=== PATIENT | female | born 2000 | race Caucasian/White ===

== ENCOUNTER 2020-02-20 21:27 | Emergency (ER) | payer OTHER ==
[2020-02-20 21:41] VITALS: BP 110/66; PULSE 84; TEMP 98.4; BMI 19.2
[2020-02-20 23:34] LABS: BASO % 0.4 % (0-2.0); EOS % 2.7 % (0-4.5); HEMATOCRIT 37.1 % (32.4-45.2); HEMOGLOBIN 12.8 GM/dL (10.7-15.3); MCH 30.5 pg (25.7-33.7); MCHC 34.4 g/dl (32.0-36.0); MEAN CELL VOLUME 88.8 fl (80-96); MEAN PLT VOLUME 8.3 fl (7.5-11.1); MONO % 7.3 % (3.8-10.2); NEUT % 46.6 % (42.8-82.8); PLATELET COUNT 251 K/MM3 (134-434); RBC 4.18 M/mm3 (3.60-5.2); RDW 12.6 % (11.6-15.6); WHITE BLOOD COUNT 7.2 K/mm3 (4.0-10.0)
[2020-02-21 00:01] LABS: ALBUMIN 4.5 g/dl (3.4-5.0); ALK PHOS 73 U/L (45-117); ANION GAP 9 MMOL/L (8-16); BILIRUBIN,TOTAL 0.4 mg/dL (0.2-1); BLOOD UREA NITROGEN 9.1 mg/dL (7-18); CALCIUM 9.7 mg/dL (8.5-10.1); CHLORIDE 108 mmol/L (98-107); CO2 24 mmol/L (21-32); CREATININE 0.9 mg/dL (0.55-1.3); GLUCOSE,RANDOM 97 mg/dL (74-106); SGOT/AST 42 U/L (15-37); SODIUM 141 mmol/L (136-145)
--- NOTE | 2020-02-21 00:27 | PDOC ---
History of Present Illness - General Chief Complaint: Chest Pain Stated Complaint: SOB Time Seen by Provider: 02/20/20 22:40 - History of Present Illness Initial Comments: 02/21/20 00:23 20 year old girl with a pmhx of "hole in her heart" who presents with 5 days of chest tightness worse with coughing and with 5 days of upper respiratory symptoms. She reports that her pain is nonradiating and not associaed with nausea, sob or sweating. She denies leg swelling or history of blood clot in her lungs or legs. She has no other complaints. ROS GENERAL/CONSTITUTIONAL: No fever or chills. No weakness. HEAD, EYES, EARS, NOSE AND THROAT: No change in vision. No ear pain or discharge. No sore throat. CARDIOVASCULAR: + chest pain, No shortness of breath RESPIRATORY: No cough, wheezing, or hemoptysis. GASTROINTESTINAL: No nausea, vomiting, diarrhea or constipation. GENITOURINARY: No dysuria, frequency, or change in urination. MUSCULOSKELETAL: No joint or muscle swelling or pain. No neck or back pain. SKIN: No rash NEUROLOGIC: No headache, vertigo, loss of consciousness, or change in strength/sensation. ENDOCRINE: No increased thirst. No abnormal weight change HEMATOLOGIC/LYMPHATIC: No anemia, easy bleeding, or history of blood clots. ALLERGIC/IMMUNOLOGIC: No hives or skin allergy. PE GENERAL: Awake, alert, and fully oriented, in no acute distress HEAD: No signs of trauma, normocephalic, atraumatic EYES: EOMI, sclera anicteric, conjunctiva clear ENT: oropharynx clear without exudates. Moist mucosa NECK: Normal ROM, supple LUNGS: No distress, speaks full sentences, clear to auscultation bilaterally HEART: Regular rate and rhythm, normal S1 and S2, no murmurs, rubs or gallops, peripheral pulses normal and equal bilaterally. ABDOMEN: Soft, nontender. No guarding, no rebound. No masses EXTREMITIES : Normal inspection, Normal range of motion, no edema. No clubbing or cyanosis. NEUROLOGICAL: Cranial nerves II through XII grossly intact. Normal speech, no focal sensorimotor deficits SKIN: Warm, Dry, normal turgor, no rashes or lesions noted Assessment and Plan 20 year old girl with a pmhx of "hole in her heart" who presents with 5 days of chest tightness worse with coughing and with 5 days of upper respiratory symptoms. Consider acs vs PE vs costochondritis vs pleurtici chest pain - cbc, cmp, trop, dimer labs wnl cxr wnl ekg wnl Will discharge with cardiology referral Arina Bernard, PGY3 Emergency Medicine Past History - Medical History Allergies/Adverse Reactions: Allergies Allergy/AdvReac Type Severity Reaction Status Date / Time No Known Allergies Allergy Verified 02/22/20 01:00 COPD: No - Reproductive History Is Patient Now?: No - Psycho-Social/Smoking History Smoking History: Current some day smoker Number of Cigarettes Smoked Daily: 1 Information on smoking cessation initiated: No - Substance Abuse Hx (Audit-C & DAST Scrn) How often the patient has a drink containing alcohol: Never Score: In Men: 4 or > Positive; In Women: 3 or > Positive: 0 Screen Result (Pos requires Nsg. Audit-10AR): Negative In the last yr the pt used illegal drug/Rx for NonMed reason: Yes Score: Yes response is considered Positive: 1 Screen Result (Positive result requires Nsg. DAST-10): Positive *Physical Exam - Vital Signs Last Vital Signs Temp Pulse Resp BP Pulse Ox 98.4 F 84 19 110/66 100 02/20/20 21:36 02/20/20 21:36 02/20/20 21:36 02/20/20 21:36 02/20/20 21:36 ED Treatment Course - LABORATORY CBC & Chemistry Diagram: 02/20/20 23:19 02/20/20 23:19 - ADDITIONAL ORDERS Additional order review: Laboratory Results 02/20/20 02/20/20 02/20/20 23:19 23:19 23:19 D-Dimer 298 Sodium 141 Potassium 4.0 Chloride 108 H Carbon Dioxide 24 Anion Gap 9 BUN 9.1 Creatinine 0.9 Est GFR (CKD-EPI)AfAm 105.19 Est GFR (CKD-EPI)NonAf 90.76 Random Glucose 97 Calcium 9.7 Total Bilirubin 0.4 AST 42 H Alkaline Phosphatase 73 Troponin I < 0.02 Albumin 4.5 Serum , Qual Negative 02/20/20 23:19 RBC 4.18 MCV 88.8 MCHC 34.4 RDW 12.6 MPV 8.3 Neutrophils % 46.6 Lymphocytes % 43.0 H Monocytes % 7.3 Eosinophils % 2.7 Basophils % 0.4 - RADIOLOGY Radiology Studies Ordered: Category Date Time Status CXR [CHEST PA & LAT] [RAD] Stat Radiology 02/20/20 22:48 Taken Discharge - Discharge Information Problems reviewed: Yes Clinical Impression/Diagnosis: Atypical chest pain Condition: Stable Disposition: HOME - Follow up/Referral Referrals: Harmeet Barr MD [Staff Physician] - - Patient Discharge Instructions Patient Printed Discharge Instructions: DI for Atypical Chest Pain Additional Instructions: You were seen in the ED for complaints of chest tightness In the ED you were evaluated with labwork, ekg and cxr Your results were within normal There does not appear to be an acute need for immediate hospitalization. You are advised to follow up with your Primary Care Physician within 1 week. You were given a referral to Cardiology and should follow up within 1 week. Your symptoms are more consistent with costochondritis or pleuritic chest pain, however if you experience worsening chest pain, shortness of breath, nausea, sweating, loss of consciousness or any other concerning symptoms, return to the ER immediately - Post Discharge Activity
[2020-02-21 01:00] LABS: SGPT/ALT 29 U/L (13-61); TOT PROT 8.4 g/dl (6.4-8.2)
--- NOTE | 2020-02-21 02:10 | PDOC ---
Documentation entered by Rani Perez SCRIBE, acting as scribe for Ebony Tinajero MD. Ebony Tinajero MD: This documentation has been prepared by the Ana butt Sydney, SCRIBE, under my direction and personally reviewed by me in its entirety. I confirm that the documentation accurately reflects all work, treatment, procedures, and medical decision making performed by me. Attending Attestation - Resident Resident Name: Arina Bernard - ED Attending Attestation I have performed the following: I have examined & evaluated the patient, The case was reviewed & discussed with the resident, I agree w/resident's findings & plan, Exceptions are as noted - HPI HPI: 02/21/20 01:04 Patient is a 20 year old female with a significant past medical history of a hole in her heart who presents to the ED with 5 days of chest tightness with associated coughing and upper respiratory symptoms. Denies fever, chills, headache, nausea, vomiting, diarrhea, constipation, or urinary changes. Allergies: NKDA - Physicial Exam PE: 02/21/20 20:23 Normal exam - Medical Decision Making 02/21/20 02:47 All labs EKG, CXR normal Pt has normal vitals and normal exam Pt has likely anxiety attack. She has known anxiety, she finally revceals to us. Heart Score/ECG Review - ECG Intrepretation Rhythm: Regular Rhythm - P and [place] Delta Wave(s) Present: No WPW: No - QRS Poor R Wave Progression: No Q Wave Present: No - ST and T Early Repolarization: No Non Specific ST-T Wave changes: No Flattened T Waves: No Prolonged Q-T Interval: No - ECG Impressions Normal ECG: Yes Non-specific ST Elevation: No Ischemic Changes: No Bradycardia: No Torsades linda Pointes: No WPW: No Discharge - Discharge Information Problems reviewed: Yes Clinical Impression/Diagnosis: Atypical chest pain Condition: Stable Disposition: HOME - Follow up/Referral Referrals: Harmeet Barr MD [Staff Physician] - - Patient Discharge Instructions Patient Printed Discharge Instructions: DI for Atypical Chest Pain Additional Instructions: You were seen in the ED for complaints of chest tightness In the ED you were evaluated with labwork, ekg and cxr Your results were within normal There does not appear to be an acute need for immediate hospitalization. You are advised to follow up with your Primary Care Physician within 1 week. You were given a referral to Cardiology and should follow up within 1 week. Your symptoms are more consistent with costochondritis or pleuritic chest pain, however if you experience worsening chest pain, shortness of breath, nausea, sweating, loss of consciousness or any other concerning symptoms, return to the ER immediately - Post Discharge Activity
--- NOTE | 2020-02-22 21:48 | EKG ---
Test Reason : Blood Pressure : / mmHG Vent. Rate : 061 BPM Atrial Rate : 061 BPM P-R Int : 136 ms QRS Dur : 090 ms QT Int : 404 ms P-R-T Axes : 068 049 044 degrees QTc Int : 406 ms NORMAL SINUS RHYTHM WITH SINUS ARRHYTHMIA INCOMPLETE RIGHT BUNDLE BRANCH BLOCK NONSPECIFIC ST ABNORMALITY ABNORMAL ECG NO PREVIOUS ECGS AVAILABLE Confirmed by HAIDER SWARTZ MD ([id number]) on 02/22/2020 9:48:11 PM Referred By: Confirmed By:HAIDER SWARTZ MD
== END 2020-02-21 03:07 | disposition home or self-care (01) ==
LOC: JER 21:27
DX: R07.89 Other chest pain (principal)
CPT/HCPCS: 36415; 71046-TC-FY; 80053; 84484; 84703; 85025; 85379; 93005; 93010; 99285-25

== ENCOUNTER 2020-02-22 00:15 | Emergency (ER) | payer OTHER ==
[2020-02-22 01:00] VITALS: BP 126/68; PULSE 77; TEMP 98.6; BMI 19.0
--- NOTE | 2020-02-22 01:04 | PDOC ---
History of Present Illness - General Chief Complaint: Chest Pain Stated Complaint: CHEST TIGHTNESS Time Seen by Provider: 02/22/20 01:03 History Source: Patient Exam Limitations: No Limitations - History of Present Illness Initial Comments: 02/22/20 01:11 20y previously healthy F presenting w 3d SOB, L chest tightness. Not exertional/positional. Didnt take any meds for pain. Yesterday evaluated in ED, negative cardiac workup, neg d-dimer, diagnosed w costochondritis, DC home. Came back to the ED because paperwork did not include instructions for pain control Past History - Medical History Allergies/Adverse Reactions: Allergies Allergy/AdvReac Type Severity Reaction Status Date / Time No Known Allergies Allergy Verified 02/22/20 01:00 COPD: No - Reproductive History Is Patient Now?: No - Psycho-Social/Smoking History Smoking History: Never smoked Number of Cigarettes Smoked Daily: 1 Information on smoking cessation initiated: No - Substance Abuse Hx (Audit-C & DAST Scrn) How often the patient has a drink containing alcohol: Never Score: In Men: 4 or > Positive; In Women: 3 or > Positive: 0 Screen Result (Pos requires Nsg. Audit-10AR): Negative In the last yr the pt used illegal drug/Rx for NonMed reason: No Score: Yes response is considered Positive: 0 Screen Result (Positive result requires Nsg. DAST-10): Negative Review of Systems - Review of Systems Constitutional: No: Chills, Fever HEENTM: No: Eye Pain, Nose Congestion Respiratory: Yes: Shortness of Breath. No: Cough Cardiac (ROS): Yes: Chest Pain. No: Palpitations ABD/GI: No: Constipated, Diarrhea, Nausea, Vomiting : No: Burning, Dysuria Musculoskeletal: No: Back Pain, Joint Pain Integumentary: No: Bruising, Flushing Neurological: No: Headache, Seizure Psychiatric: No: Anxiety, Depression Endocrine: No: Intolerance to Cold, Intolerance to Heat Hematologic/Lymphatic: No: Anemia, Blood Clots *Physical Exam - Vital Signs Last Vital Signs Temp Pulse Resp BP Pulse Ox 98.6 F 77 16 126/68 99 02/22/20 00:20 02/22/20 00:20 02/22/20 00:20 02/22/20 00:20 02/22/20 00:20 - Physical Exam General Appearance: Yes: Nourished, Appropriately Dressed, Mild Distress HEENT: positive: EOMI, MITESH, Normal Voice, Hearing Grossly Normal. negative: Scleral Icterus (R), Scleral Icterus (L) Respiratory/Chest: positive: Chest Tender (midsternal), Lungs Clear, Normal Breath Sounds. negative: Respiratory Distress, Crackles, Rales, Rhonchi, Stridor, Wheezing Cardiovascular: positive: Regular Rhythm, Regular Rate, S1, S2. negative: Murmur Gastrointestinal/Abdominal: positive: Normal Bowel Sounds, Flat, Soft. negative: Tender, Organomegaly Integumentary: positive: Normal Color, Warm Neurologic: positive: Fully Oriented, Alert, Normal Mood/Affect, Normal Response, Responsive Medical Decision Making - Medical Decision Making 02/22/20 05:27 20y previously healthy F presenting w 3d SOB, L chest tightness d/t costochondritis (chest tender) Neg d-dimer r/o PE, negative workup day before Given valium, ibuprofen w pain relief DC home w supportive care Discharge - Discharge Information Problems reviewed: Yes Clinical Impression/Diagnosis: Costochondritis Condition: Improved Disposition: HOME - Follow up/Referral Referrals: Harmeet Barr MD [Staff Physician] - - Patient Discharge Instructions Patient Printed Discharge Instructions: DI for Costochondritis Additional Instructions: Your symptoms are due to inflammation of your chest muscles Take 1000mg tylenol or 600mg ibuprofen every 6hrs if you have pain Please follow up with your primary care doctor and referred marine photographer Dr Ga - Post Discharge Activity
[2020-02-22] MEDS ORDERED: IBUPROFEN 600 MG TABLET (FP) PO ONE ×2 (01:06→01:15)
[2020-02-22] MEDS ORDERED: diazePAM 2 MG TABLET PO ONE (01:10)
[2020-02-22] MEDS ORDERED: diazePAM 2 MG TABLET ONE (01:14)
--- NOTE | 2020-02-22 18:14 | EKG ---
Test Reason : Blood Pressure : / mmHG Vent. Rate : 069 BPM Atrial Rate : 069 BPM P-R Int : 132 ms QRS Dur : 080 ms QT Int : 380 ms P-R-T Axes : 068 061 044 degrees QTc Int : 407 ms NORMAL SINUS RHYTHM WITH SINUS ARRHYTHMIA NORMAL ECG WHEN COMPARED WITH ECG OF 20-FEB-2020 21:52, T WAVE VARIATION Confirmed by HAIDER SWARTZ MD ([id number]) on 02/22/2020 6:14:30 PM Referred By: Confirmed By:HAIDER SWARTZ MD
--- NOTE | 2020-02-22 23:47 | PDOC ---
Documentation entered by Andrew Meyers SCRIBE, acting as scribe for Cleveland Hendricks DO. Cleveland Hendricks DO: This documentation has been prepared by the Luigi butt Alexis, SCRIBE, under my direction and personally reviewed by me in its entirety. I confirm that the documentation accurately reflects all work, treatment, procedures, and medical decision making performed by me. Attending Attestation - Resident Resident Name: Jose F Corona - ED Attending Attestation I have performed the following: I have examined & evaluated the patient, The case was reviewed & discussed with the resident, I agree w/resident's findings & plan, Exceptions are as noted - HPI HPI: 02/22/20 01:04 Agree with resident - Physicial Exam PE: 02/22/20 01:04 Agree with resident - Medical Decision Making 02/22/20 01:04 20 year old female with reproducible chest pain Perc score 1 Seen here yesterday for same Will plan for d dimer, valium and reassessment Appears well negative chest x ray yesterday Discharge - Discharge Information Problems reviewed: Yes Clinical Impression/Diagnosis: Costochondritis Condition: Improved Disposition: HOME - Follow up/Referral Referrals: Harmeet Barr MD [Staff Physician] - - Patient Discharge Instructions Patient Printed Discharge Instructions: DI for Costochondritis Additional Instructions: Your symptoms are due to inflammation of your chest muscles Take 1000mg tylenol or 600mg ibuprofen every 6hrs if you have pain Please follow up with your primary care doctor and referred liner machine operator helper Dr Ga - Post Discharge Activity
== END 2020-02-22 02:16 | disposition home or self-care (01) ==
LOC: JER 00:15
DX: M94.0 Chondrocostal junction syndrome [Tietze] (principal)
CPT/HCPCS: 85379; 93005; 93010; 99284-25

== ENCOUNTER 2020-10-31 14:27 | Emergency (ER) | payer OTHER ==
[2020-10-31 14:54] VITALS: BMI 19.8
[2020-10-31] MEDS ORDERED: diphenhydrAMINE HCL 25 MG CAPSULE (FP) PO ONE ×2 (17:08→17:16)
[2020-10-31 17:28] LABS: BASO % 0.5 % (0-2.0); EOS % 1.9 % (0-4.5); HEMATOCRIT 41.4 % (32.4-45.2); HEMOGLOBIN 14.1 GM/dL (10.7-15.3); LYMPH % 31.5 % (8-40); MCH 30.2 pg (25.7-33.7); MCHC 33.9 g/dl (32.0-36.0); MEAN CELL VOLUME 88.9 fl (80-96); MONO % 5.6 % (3.8-10.2); NEUT % 60.5 % (42.8-82.8); PLATELET COUNT 279 K/MM3 (134-434); RBC 4.66 M/mm3 (3.60-5.2); RDW 12.9 % (11.6-15.6); WHITE BLOOD COUNT 8.5 K/mm3 (4.0-10.0)
[2020-10-31 17:32] LABS: INR 0.9 (0.83-1.09); PROTHROMBIN TIME (PATIENT) 10.9 SEC (9.7-13.0)
[2020-10-31 17:35] LABS: ACTIVATED PTT 30.9 SECONDS (25.2-36.5)
[2020-10-31 17:40] LABS: CHLORIDE 108 mmol/L (98-107); SODIUM 140 mmol/L (136-145)
[2020-10-31 17:42] LABS: CALCIUM 9.1 mg/dL (8.5-10.1)
[2020-10-31 17:43] LABS: ALBUMIN 4.4 g/dl (3.4-5.0); ANION GAP 7 MMOL/L (8-16); CO2 26 mmol/L (21-32); GLUCOSE,RANDOM 89 mg/dL (74-106); MAGNESIUM 2.3 mg/dL (1.8-2.4)
[2020-10-31 17:46] LABS: SGOT/AST 23 U/L (15-37); SGPT/ALT 21 U/L (13-61)
[2020-10-31 17:48] LABS: BILIRUBIN,TOTAL 0.4 mg/dL (0.2-1); TOT PROT 8.4 g/dl (6.4-8.2)
[2020-10-31 17:49] LABS: ALK PHOS 78 U/L (45-117)
[2020-10-31 19:53] VITALS: BP 90/65; PULSE 105; TEMP 98.2
== END 2020-10-31 19:53 | disposition home or self-care (01) ==
LOC: JERFT 14:27
DX: R07.81 Pleurodynia (principal)
CPT/HCPCS: 36415; 71046-TC-FY; 71275-TC; 80053; 82550; 82553; 83735; 84484; 84703; 85025; 85379; 85610; 85730; 93005; 93010; 99285-25; Q9967